=== PATIENT | female | born 1955 ===

== ENCOUNTER 2016-10-15 12:55 | Outpatient (CLI) | payer OTHER ==
--- NOTE | 2016-10-15 16:26 | Mammography Report ---
BILATERAL DIGITAL SCREENING MAMMOGRAM with CAD: 10/15/16 12:55:00 CLINICAL: Routine screening. COMPARISON:None available. She does not remember where she had a previous mammogram. FINDINGS: The breasts are heterogeneously dense, which may obscure small masses. A right focal asymmetry requires additional imaging.No architectural distortion or suspicious calcifications. IMPRESSION: Right asymmetry requiring further workup. BI-RADS CATEGORY: 0 -- Additional Imaging Evaluation Required RECOMMENDATION: Recall for right mediolateral , spot compression CC and MLO views and ultrasound if needed. ACR BI-RADS MAMMOGRAPHIC CODES: 0 = Needs additional imaging evaluation; 1 = Negative; 2 = Benign; 3 = Probably benign; 4 = Suspicious; 5 = Malignant; 6 = Known biopsy-proven malignancy COMMENT: 1. Dense breast tissue, i.e., adenosis, fibrocystic changes, etc., may obscure an underlying neoplasm. 2. Approximately 10% of cancers are not detected with mammography. 3. A negative mammography report should not delay biopsy if a clinically suspicious mass is present. COMMENT: Patient follow-up letters are generated via our [employer] application.
== END 2016-10-15 12:56 | disposition home or self-care (01) ==
LOC: SPVWC 12:55
PROVIDERS: ATTEND Internal Medicine
DX: Z12.31 Encounter for screening mammogram for malignant neoplasm of breast (principal)
CPT/HCPCS: 77067; G0202